=== PATIENT | female | born 1940 | race Caucasian/White ===

== ENCOUNTER → 2017-02-18 | Outpatient (CLI) | payer MEDICARE ==
--- NOTE | 2017-02-18 14:29 | REPMRS ---
Patient History The patient states she had a clinical breast exam in Patient is postmenopausal and has history of endometrial cancer at age 63. No known family history of cancer. Took unspecified hormones for 5 years. Digital Woman Screen Mammo: February 18, 2017 - Exam #: [id number] Bilateral CC and MLO view(s) were taken. Technologist: Katey Nieto, Technologist Prior study comparison: August 26, 2015, digital woman screen mammo performed at [facility]. March 01, 2014, bilateral bilat screen digital mammo, performed at [facility] ([facility]). FINDINGS: There are scattered fibroglandular densities. There has been no change in the appearance of the mammogram from the prior studies. There is a mild amount of residual fibroglandular tissue which is fairly symmetric. There is no interval development of dominant mass, architectural distortion, or clustered microcalcification suggestive of malignancy. ASSESSMENT: BI-RADS/ACR category 1 mammogram. Negative. Recommendation Routine screening mammogram in 1 year (for women over age 40). This mammogram was interpreted with the aid of an FDA-approved computer-aided dectection system. Electronically Signed By: Ochoa Teixeira MD 02/18/17 [id number]
--- NOTE | 2017-02-22 11:40 | DEXA ---
AP SPINE L1 - L4 1.181 -0.1 2.0 LT FEMUR TOTAL 0.806 -1.6 0.4 RT FEMUR TOTAL 0.751 -2.6 0.0 TOTAL BODY TOTAL OTHER DUAL FEMUR FRAX* ASSESSMENT Risk factors: History of adult fracture. 10 year probability of fracture Major osteoporotic fracture 25 % Hip fracture 8.2 % COMMENTS: Normal bone densitometry of the spine. There is low bone density of the left hip. 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 The decreased density of the spine does represent a significant change. The decreased density of the left hip does not represent a significant change. The decreased density of the right hip does not represent a significant change. The density of the spine has increased 8.1% since the initial exam on 03/2000. The spine density has decreased 2.7% since the most recent exam on 02/2014. The density of the left hip has decreased 6.6% since the initial exam on 03/2000. The density of the left hip has decreased 1.0% since the most recent exam on 2013. The density of the right hip has decreased 7.9% since the initial exam on 1999. The density of the right hip has decreased 1.6% since the most recent exam on 2013. FOLLOW-UP: Recommendation for the next bone density exam: 2 years. RUDDY
== END ==
LOC: M WHC 12:29
PROVIDERS: ATTEND Nurse Practitioner Family
DX: M85.851 Other specified disorders of bone density and structure, right thigh (principal); Z12.31 Encounter for screening mammogram for malignant neoplasm of breast; M81.0 Age-related osteoporosis without current pathological fracture; M85.852 Other specified disorders of bone density and structure, left thigh
CPT/HCPCS: 77080; G0202

== ENCOUNTER 2017-08-24 06:27 | Day surgery (SDC) | payer MEDICARE ==
[~2017-08-24] VITALS: Ht 154.9 cm; Wt 53.1 kg
[~2017-08-24 06:27] MED LIST: ALEN70TA39 PO; CALC1TAB56 PO; D400400C PO; MULT1TAB10 PO; OCUVTAB4 PO; SERT25TA PO; TUMERIC PO; TYLE1TAB5 PO
[2017-08-24] MEDS ORDERED: NS 500 ML IV SCH (06:45)
[2017-08-24] MEDS ORDERED: PROPOFOL 200 MG/20 ML VIAL As Ordered ONE ×2 (07:02→07:53)
[2017-08-24] MEDS ORDERED: LIDOCAINE 2% INJ 100 MG/5 ML SDV (FOR ANES.) As Ordered ONE (07:02)
--- NOTE | 2017-08-24 08:06 | ROOR ---
Patient Name: Isabelle Boykin Procedure Date: 08/24/2017 7:36 AM Date of : 1940 Age: 76 Room: [facility] Gender: Female Note Status: Finalized Procedure: Colonoscopy to Rectum + Hot + Cold + Biopsy Polypectomy + Apc. Indications: Therapeutic procedure for known rectal mass Providers: Nghia Garcia MD Referring MD: Josie BELL MD Requesting Provider: Medicines: Monitored Anesthesia Care Complications: No immediate complications. Procedure: Pre-Anesthesia Assessment: - The heart rate, respiratory rate, oxygen saturations, blood pressure, adequacy of pulmonary ventilation, and response to care were monitored throughout the procedure. The Colonoscope was introduced through the anus and advanced to the rectum to examine a mass. This was the intended extent. The colonoscopy was performed without difficulty. The patient tolerated the procedure well. The quality of the bowel preparation was good. Findings: The perianal and digital rectal examinations were normal. A large polyp was found in the rectum. The polyp was sessile. The polyp was removed with a jumbo cold forceps. The polyp was removed with a hot snare. The polyp was removed with a cold snare. Resection and retrieval were complete. Vaporization for destruction of remaining portion of lesion using argon plasma at 2 liters/minute and 30 cross was successful. The exam was otherwise without abnormality. Impression: - One large polyp in the rectum, removed with a hot snare, removed with a cold snare and removed with a jumbo cold forceps. Resected and retrieved. Treated with argon plasma coagulation (APC). - The examination was otherwise normal. Recommendation: - Patient has a contact number available for emergencies. The signs and symptoms of potential delayed complications were discussed with the patient. Return to normal activities tomorrow. Written discharge instructions were provided to the patient. - High fiber diet. - Discharge patient to home. - Continue present medications. - Await pathology results. - Telephone GI clinic for pathology results in 1 week. - Repeat colonoscopy for surveillance based on pathology results. - Return to referring physician. - Check Portal Online for Path Results.([email or web address] - The findings and recommendations were discussed with the patient's family. Nghia Garcia MD Nghia Garcia MD 08/24/2017 8:06:30 AM This report has been signed electronically. Number of Addenda: 0 Note Initiated On: 08/24/2017 7:36 AM Estimated Blood Loss: Estimated blood loss: none.
[2017-08-24 08:25] VITALS: BP 152/73
== END 2017-08-24 08:34 | disposition home or self-care (01) ==
LOC: M OPP 06:27
PROVIDERS: ATTEND Internal Medicine Gastroenterology
DX: Z09 Encounter for follow-up examination after completed treatment for conditions other than malignant neoplasm (principal); D37.4 Neoplasm of uncertain behavior of colon; Z86.010 Personal history of colon polyps; K62.1 Rectal polyp; K62.89 Other specified diseases of anus and rectum; F32.9 Major depressive disorder, single episode, unspecified; Z79.899 Other long term (current) drug therapy

== ENCOUNTER → 2018-02-21 | Outpatient (CLI) | payer MEDICARE | LOC: M WHC 12:42 | DX: Z12.31 Encounter for screening mammogram for malignant neoplasm of breast (principal) | CPT/HCPCS: 77067 ==

== ENCOUNTER 2018-08-16 06:30 | Day surgery (SDC) | payer MEDICARE ==
[2018-08-16] MEDS ORDERED: LIDOCAINE 2% INJ 100 MG/5 ML SDV (FOR ANES.) As Ordered (06:52)
[2018-08-16] MEDS ORDERED: PROPOFOL 200 MG/20 ML VIAL As Ordered (06:52)
[2018-08-16] MEDS: NS 1,000 ML IV (07:00)
== END 2018-08-16 08:32 | disposition home or self-care (01) ==
LOC: M OPP 06:30
DX: Z86.010 Personal history of colon polyps (principal); Z09 Encounter for follow-up examination after completed treatment for conditions other than malignant neoplasm; K62.1 Rectal polyp; I10 Essential (primary) hypertension; Z79.899 Other long term (current) drug therapy; Z90.710 Acquired absence of both cervix and uterus
CPT/HCPCS: 45378

== ENCOUNTER → 2019-06-26 | Outpatient (CLI) | payer MEDICARE ==
[~2019-06-26] MED LIST changes: -ALEN70TA39 PO; +ALEN70TA74 PO; +AMLO2.5T3 PO; -SERT25TA PO; +SERT25TA85 PO
--- NOTE | 2019-06-26 14:11 | REPMRS ---
Patient History The patient states she had a clinical breast exam in 02/2019. Patient is postmenopausal, has history of basal and squmaous cell skin cancer at age 78, and has history of endometrial cancer at age 63. No known family history of cancer. Took unspecified hormones for 5 years. 3D TOMOSYNTHESIS WAS PERFORMED. The [facility] lifetime risk for breast cancer is 2.4%. Digital Woman Screen Mammo: June 26, 2019 - Exam #: [id number] Bilateral CC and MLO view(s) were taken. Technologist: Carla Bryant, Technologist Prior study comparison: February 21, 2018, digital woman screen mammo performed at [facility]. February 18, 2017, digital woman screen mammo performed at [facility]. FINDINGS: There are scattered fibroglandular densities. There has been no change in the appearance of the mammogram from the prior studies. There is a mild amount of residual fibroglandular tissue which is fairly symmetric. There is no interval development of dominant mass, architectural distortion, or clustered microcalcification suggestive of malignancy. Assessment: BI-RADS/ACR category 1 mammogram. Negative Mammogram. Recommendation Routine screening mammogram in 1 year (for women over age 40). This mammogram was interpreted with the aid of an FDA-approved computer-aided dectection system. Electronically Signed By: Ochoa Teixeira MD 06/26/19 [id number]
--- NOTE | 2019-06-28 15:40 | DEXA ---
AP SPINE L1 - L4 1.199 0.0 1.8 LT FEMUR TOTAL 0.801 -1.6 0.2 LT NECK 0.751 -2.1 0.0 RT FEMUR TOTAL 0.749 -2.1 -0.2 RT NECK 0.727 -2.2 -0.2 TOTAL BODY TOTAL OTHER COMMENTS: Normal bone densitometry of the spine. There is low bone density of the hips. The increased density of the spine does not represent a significant change. The decreased density of the left hip does not represent a significant change. The decreased density of the right hip does not represent significant change. The density of the spine has increased 9.7% since the initial exam on 03/31/2000. The spine density has increased 1.5% since the most recent exam on 02/18/2017. The density of the left hip has decreased 7.2% since the initial exam on 03/31/2000. The density of the left hip has decreased 0.6% since the most recent exam on 02/18/2017. The density of the right hip has decreased 8.1% since the initial exam on 03/31/2000. The density of the right hip has decreased 0.3% since the most recent exam on 02/18/2017. FOLLOW-UP: Recommendation for the next bone density exam: 2 years. RUDDY
== END ==
LOC: M WHC 12:28
PROVIDERS: ATTEND Internal Medicine
DX: Z12.31 Encounter for screening mammogram for malignant neoplasm of breast (principal); M81.0 Age-related osteoporosis without current pathological fracture

== ENCOUNTER → 2020-07-09 | Outpatient (CLI) | payer MEDICARE ==
--- NOTE | 2020-07-09 13:49 | REPMRS ---
Patient History The patient states she had a clinical breast exam in 02/2020. Patient is postmenopausal, has history of skin cancer at age 78, and has history of endometrial cancer at age 63. No known family history of cancer. Took unspecified hormones for 5 years. 3D TOMOSYNTHESIS WAS PERFORMED. [facility]%. VOLPARA DENSITY B. Digital Woman Screen Mammo: July 09, 2020 - Exam #: [id number] Bilateral CC and MLO view(s) were taken. Technologist: Carla Bryant, Technologist Prior study comparison: June 26, 2019, bilateral digital woman screen mammo performed at [facility]. February 21, 2018, digital woman screen mammo performed at [facility]. FINDINGS: There are scattered fibroglandular densities. There has been no change in the appearance of the mammogram from the prior studies. There is a mild amount of residual fibroglandular tissue which is fairly symmetric. There is no interval development of dominant mass, architectural distortion, or clustered microcalcification suggestive of malignancy. Assessment: BI-RADS/ACR category 1 mammogram. Negative Mammogram. Recommendation Routine screening mammogram in 1 year (for women over age 40). This mammogram was interpreted with the aid of an FDA-approved computer-aided dectection system. Electronically Signed By: Ochoa Teixeira MD 07/09/20 [id number]
== END ==
LOC: M WHC 12:40
PROVIDERS: ATTEND Internal Medicine
DX: Z12.31 Encounter for screening mammogram for malignant neoplasm of breast (principal); Z78.0 Asymptomatic menopausal state; Z85.828 Personal history of other malignant neoplasm of skin; Z85.42 Personal history of malignant neoplasm of other parts of uterus

== ENCOUNTER → 2021-04-01 | Outpatient (REF) | payer MEDICARE ==
[~2021-04-01] MED LIST changes: -ALEN70TA74 PO; +ALEN70TA82 PO
== END ==
LOC: M LAB REF 17:34
PROVIDERS: ATTEND Physician Assistant
DX: D04.62 Carcinoma in situ of skin of left upper limb, including shoulder (principal); D23.71 Other benign neoplasm of skin of right lower limb, including hip
CPT/HCPCS: 11102; 11103; 17000; 17003; 88305; G0463

== ENCOUNTER → 2021-05-08 | Outpatient (REF) | payer MEDICARE | LOC: M LAB REF 18:27 | PROVIDERS: ATTEND Dermatology | DX: L85.9 Epidermal thickening, unspecified (principal); L57.8 Other skin changes due to chronic exposure to nonionizing radiation; L90.5 Scar conditions and fibrosis of skin ==

== ENCOUNTER → 2021-07-31 | Outpatient (CLI) | payer MEDICARE ==
[~2021-07-31] MED LIST changes: +AMLO1TAB24 PO; +SERT25TA21 PO
--- NOTE | 2021-07-31 11:37 | DEXAMM ---
INDICATION: OTH DISORDER BONE DENSITY AND STRUCTURE. COMPARISON: 06/26/2019 as well as other prior exams. TECHNIQUE: Bone density was measured using dual-energy x-ray absorptiometry (DEXA). FINDINGS: AP SPINE L1-L4 BMD 1.207 g/cm2 Young Adult T-Score 0.1 Age Matched Z-Score 1.9. LT FEMUR, TOTAL BMD 0.794 g/cm2 Young Adult T-Score -1.7 Age Matched Z-Score 0.3. LT NECK BMD 0.730 g/cm2 Young Adult T-Score -2.2 Age Matched Z-Score -0.1. RT FEMUR, TOTAL BMD 0.758 g/cm2 Young Adult T-Score -2.0 Age Matched Z-Score 0.0. RT NECK BMD 0.690 g/cm2 Young Adult T-Score -2.5 Age Matched Z-Score -0.4. IMPRESSION: There is normal bone density of the spine. There is low bone density of the left hip. There is low bone density of the right hip. The density of the spine has increased 10.4% since the initial exam on 03/31/2000. The density of the spine increased 0.7% since most recent exam on 06/26/2019. The density of the left hip has decreased 8.0% since initial exam on 03/31/2000. The density of the left hip has decreased 0.9% since most recent exam on 06/26/2019. The density of the right hip has decreased 7.0% since the initial exam on 03/31/2000. The density of the right hip has increased 1.2% since the most recent exam on 06/26/2019. FOLLOW-UP: Recommendation for the next bone density exam: 2 years. <Electronically signed by Ochoa Teixeira > 07/31/21 [id number]
== END ==
LOC: M WHC 09:45
PROVIDERS: ATTEND Internal Medicine
DX: M85.89 Other specified disorders of bone density and structure, multiple sites (principal)

== ENCOUNTER → 2021-07-31 | Outpatient (CLI) | payer MEDICARE | LOC: M LABSMTC 09:21 | PROVIDERS: ATTEND Anesthesiology | DX: Z01.812 Encounter for preprocedural laboratory examination (principal); Z20.822 Contact with and (suspected) exposure to COVID-19 ==

== ENCOUNTER 2021-08-05 06:43 | Day surgery (SDC) | payer MEDICARE ==
[~2021-08-05] VITALS: Ht 157.5 cm; Wt 55.3 kg
[~2021-08-05 06:43] MED LIST changes: +NS 1,000 ML IV ONE
--- OUTSIDE RECORDS SUMMARY | 2021-08-05 06:48 | CCD | Continuity of Care Document ---
Author Author Isabelle Kunz Organization Unknown Address [address] [facility] [address] [place] [address] Phone [phone] Care Team Providers Care Biomechanical Engineer Name Role Phone Josie Staton MD AUTM [phone] Willa Fung AUTM [phone] Nghia Garcia MD AUTM [phone] Problems Active Problems Provider Date Allergic rhinitis Josie Staton M.D. Onset: 5 Gastroesophageal reflux disease Josie Staton M.D. Onse t: 07/02/2015 Elevated blood-pressure reading without diagnosis of h ypertension Josie Staton M.D. Onset: 07/02/2015 Social History Type Date Description Comments Sex Unknown ETOH Use Drinks 6 Alcoholic Beverages Per Week 02/19/14 ETOH Use Drinks 2 Alcoholic Beverages Per Day 03/01/19 Tobacco Use Start: Unknown End: Unknown Patient is a former smoker [employer] IN [employer] DID NOT INHALE Allergies and adverse reactions Active Allergies Criticality Reaction | Severity Comments Date Sulfa Unable to assess criticality Childhood 02/19/2014 Inactive Allergies NKDA Unable to assess criticality 02/20/2009 Medications Active Medications SIG Qnty Indications Ordering Provide r Date Melatonin 5mg Capsules 1 every night at bedtime as needed 30caps Josie Staton M.D. 2020 Lorazepam 0.5mg Tablets 1/2- 1 po qhs prn 20tabs Josie Staton M.D. 07/29/2020 Amlodipine Besylate 5mg Tablets take one tablet by mouth at bedtime 90tabs Tyra Hubbard. D. 03/28/2018 Tylenol PM Extra Strength 500-25mg Tablets 1-2 by mouth every night at bedtime as needed Josie Staton M.D. 09/15/2017 Calcium 600+D [id number] Table ts 1-2 a day po Josie Staton M.D. 02/26/20 15 Preservision Areds Tablets 1 qd po Josie Staton M.D. 02/25/2015 Sertraline HCL 25mg Tablets take 1-2 tablets by mouth every day 90tabs Krystal Hubbard 02/25/2015 Nettipot prn Josie Staton M.D. 0 02/14/2012 MV-One Capsules qd Josie Staton M.D. 02/10/2011 Medications Administered in Office Medication SIG Qnty Indications Ordering Provider Date Covid-19 vaccine, Unspecified Inj ection Unknown 12/26/2020 Covid-19 vaccine, Unspecified Inj ection Unknown 12/05/2020 Administration Of Flu Vaccine Inj wilfred Staton M.D. 07/29/20 20 Administration Of Flu Vaccine Inj tannaion Josie Staton M.D. 08/07/20 19 Administration Of Flu Vaccine Inj wilfred Staton M.D. 08/02/20 17 Administration Of Flu Vaccine Inj wilfred Staton M.D. 07/23/20 16 Administration Of Flu Vaccine Inj wilfred Staton M.D. 07/16/20 09 Immunizations CPT Code Status Date Vaccine Lot # [id number] Given 07/23/2021 Influenza Vaccin e Quadrivalent Preser/Antibiotic Free Im Use [id number] Given 07/29/2020 Influenza Vaccin e Quadrivalent Preser/Antibiotic Free Im Use [id number] 42639 Given 08/07/2019 Influenza Vaccin e Quadrivalent Preser/Antibiotic Free Im Use [id number] 44705 Given 06/11/2019 Shingrix Zoster Vaccine (HZV), Recombinant, Subunit, Adjuvanted 34697 Given 02/06/2019 Shingrix U-Flu Given 07/28/2018 Influenza,Unspecified 00530 Given 08/02/2017 Influenza Vaccin e Quadrivalent Preser/Antibiotic Free Im Use 38282 Given 03/22/2017 Adacel- Tetanus Diphtheria P ertussis [id number] Given 07/23/2016 Fluvirin Virus Vaccine 19313 01 28725 Given 07/16/2009 Influenza Virus Vaccine 22522 Given 09/14/2007 Pneumovax 23 54652 Given 03/27/2007 Tetanus/Diptheria(Td)Toxoids Preservative Free Vital Signs Date Vital Result Comment 03/05/2021 8:54am BP Systolic 140 mmHg BP Diastolic 70 mmHg Heart Rate 65 /min Height 60 inches 5'0" Weight 123.25 lb BMI (Body Mass Index) 24.1 kg/m2 07/29/2020 1:59pm BP Systolic 142 mmHg BP Diastolic 80 mmHg BP Systolic Recheck 118 mmHg BP Diastolic Recheck 70 mmHg Heart Rate 84 /min Height 60 inches 5'0" Weight 122.00 lb O2 % BldC Oximetry 97 % BMI (Body Mass Index) 23.8 kg/m2 Results Test Acquired Date Facility Test Result H/L Range Note Complete Blood Count 03/05/2021 [facility] Check Scaler: [place] [address] [phone] WBC 6.1 x10*3/UL 4.1 - 10.9 RBC 5.15 x10*6/UL 4.20 - 6.30 Hemoglobin 13.5 g/dL 12.0 - 18.0 Hematocrit 39.7 % 37.0 - 51.0 MCV 77.0 fL Low 80.0 - 97.0 MCH 26.1 pg 26.0 - 32.0 MCHC 33.9 g/dL 31.0 - 38.0 RDW 13.4 % 11.6 - 13.7 PLT 269 x10*3/UL 140 - 440 MPV 7.5 FL Low 7.8 - 11.0 Lymph % 22.3 % 10.0 - 58.5 Mid % 6.7 % 1.7 - 9.3 Neut % 71.0 % 37.0 - 92.0 Lymph # 1.3 x10*3/UL 0.6 - 4.1 Mid # 0.5 x10*3/UL 0.1 - 0.6 Neut # 4.3 x10*3/UL 2.0 - 7.8 Comprehensive Chem Profile 03/05/2021 [facility], Check Scaler: Dr Jose Angel [place] [address] [phone] Glucose 91 mg/dL 74 - 99 1 BUN 12 mg/dL 7 - 18 Creatinine 0.6 mg/dL 0.6 - 1.3 Sodium 136 mEq/L 136 - 145 Potassium 4.0 mEq/L 3.5 - 5.1 Chloride 98 mEq/L 98 - 107 Carbon Dioxide 29 mEq/L 21 - 32 Calcium 9.1 mg/dL 8.5 - 10.1 Alk. Phosphatase 62 mg/dL 46 - 116 Total Bilirubin 0.7 mg/dL 0.2 - 1.0 Ast (Sgot) 23 U/L 15 - 37 Alt (SGPT) 30 U/L 12 - 78 Albumin 4.4 g/dL 3.4 - 5.0 Total Protein 6.9 g/dL 6.4 - 8.2 A/G Ratio 1.76 CALC 1.00 - 1.90 GFR >= 60 mL/min >60 GFR >= 60 mL/min >60 2 Lipid Profile 03/05/2021 [facility] , Check Scaler: Dr Jose Angel [place] [address] [phone] Cholesterol 229 mg/dL High 131 - 200 Triglycerides 103 mg/dL 30 - 150 HDL Cholesterol 91 mg/dL High 35 - 60 LDL (Calculated) 117 CALC 50 - 159 Laboratory test finding 03/05/2021 [facility] Check Scaler: Dr Jose Angel [place] [address] [phone] Thyroid Stimulating Hormone 1.85 uIU/mL 0.3 6 - 3.74 Ua Dipstick Only 03/05/2021 [facility] , Check Scaler: Dr Jose Angel [place] [address] [phone] Urine Color YELLOW Yellow Urine Appearance SL. HAZY Abnormal Clear Urine PH 8.0 units 5.0 - 9.0 Urine Specific [place] 1.010 1.005 - 1.030 Urine Leukocytes NEGATIVE Negative Urine Blood NEGATIVE Negative Urine Protein NEGATIVE Negative -Trace Urine Glucose NEGATIVE mg/dL Negative Urine Nitrite NEGATIVE Negative Urine Ketone NEGATIVE mg/dL Negative Urine Bilirubin NEGATIVE Negative Urine Urobilinogen 0.2 mg/dL 0.2 - 1.0 1 100-125 mg/dL PRE-DIABET ES/FASTING >126 mg/dL DIABETES/FASTING 2 CHRONIC KIDNEY DISEASE STAGI NG PER NKF STAGE I & II GFR >= 60 NORMAL TO MILDLY DECREASED STAGE III GFR 30-59 MODERATELY DECREASED STAGE IV GFR 15-29 SEVERELY DECREASED STAGE V GFR <15 VERY LITTLE GFR LEFT ESRD GFR <15 ON BRIM AND CROWN PRESSER Procedures Date Code Description Status 03/05/2021 90963 EKG/Interpretation & Report Comp leted 03/05/2021 93515 Est Prevent Med (65Yrs&Ovr) Comp leted 07/09/2020 [id number] Mammogram Completed 06/26/2019 [id number] Mammogram Completed 06/26/2019 [id number] Bone Mineral Density Test [facility] 08/16/2018 [id number] Colonoscopy Completed 02/21/2018 [id number] Mammogram Completed 08/24/2017 [id number] Colonoscopy Completed 02/18/2017 [id number] Bone Mineral Density Test [facility] 02/18/2017 [id number] Mammogram Completed 08/18/2016 [id number] Colonoscopy Completed 03/19/2015 [id number] Mammogram Completed 03/01/2014 [id number] Mammogram Completed 03/01/2014 [id number] Bone Mineral Density Test [facility] 02/26/2013 [id number] Mammogram Completed 02/22/2012 [id number] Mammogram Completed 02/22/2012 [id number] Bone Mineral Density Test [facility] 08/11/2011 [id number] Colonoscopy Completed 08/28/2010 [id number] Colonoscopy Completed 09/29/2009 [id number] Mammogram Completed 04/22/2009 [id number] Bone Mineral Density Test [facility] Medical Devices Description No Information Available Encounters Type Date Location Provider Dx Diagnosis Office Visit 03/05/2021 9[facility]a [facility] Z00.00 Encntr for general adult med ical exam w/o abnormal findings J30.9 Allergic rhinitis, unspecifi ed M15.9 Polyosteoarthritis, unspecif ied M81.0 Age-related osteoporosis w/o current pathological fracture F41.9 Anxiety disorder, unspecifie d K21.9 Gastro-esophageal reflux dis ease without esophagitis E78.5 Hyperlipidemia, unspecified Z86.010 Personal history of colonic polyps Z13.89 Encounter for screening for other disorder I10 Essential (primary) hyperten roxann Assessments Date Code Description Provider 03/05/2021 Z00.00 Encounter for genera l adult medical examination without abnormal findings Josie Staton M.D. 03/05/2021 J30.9 Allergic rhinitis, unspecified J liam Staton M.D. 03/05/2021 M15.9 Polyosteoarthritis, unspecified Josie Staton M.D. 03/05/2021 M81.0 Age-related osteoporosis without current pathological fractu Josie Staton M.D. 03/05/2021 F41.9 Anxiety disorder, unspecified Pippa Staton M.D. 03/05/2021 K21.9 Gastro-esophageal reflux disease without esophagitis Josie Staton M.D. 03/05/2021 E78.5 Hyperlipidemia, unspecified Sandy Staton M.D. 03/05/2021 Z86.010 Personal history of colonic poly ps Josie Staton M.D. 03/05/2021 Z13.89 Encounter for screening for othe r disorder Josie Staton M.D. 03/05/2021 I10 Essential (primary) hypertension Josie Staton M.D. Plan of Treatment Future Appointment(s):* 08/17/2021 9:30 am - Josie Staton M.D. at [facility] 03/05/2021 - Josie Staton M.D.* Z00.00 Encounter for general adult medical examination without abnormal findings * J30.9 Allergic rhinitis, unspecified * M15.9 Polyosteoarthritis, unspecified * M81.0 Age-related osteoporosis without current pathological fractu * F41.9 Anxiety disorder, unspecified * K21.9 Gastro-esophageal reflux disease without esophagitis * E78.5 Hyperlipidemia, unspecified * Z86.010 Personal history of colonic polyps * Z13.89 Encounter for screening for other disorder * I10 Essential (primary) hypertension * All * New Medication:* Melatonin 5 mg - 1 every night at bedtime as needed * Comments:* 8. Cough. Chronic, stable. Evangeline to be related to allergies9. Skin cancer. Follows regularly with [id number] Health Maintenance. Patient's Medicare Wellness paperwork is reviewed. She is not smoking, check list is reviewed without issues. Passed her Cognitive screen as well as CAGE, PHQ9, [facility] is reviewed. She is due for bone density and order will be given. She would like to hold off on further mammograms. Pap smears are not indicated. Vaccines are up to date. Diet, exercise discussed. Functional Status Description No Information Available Mental Status Description No Information Available Referrals Description No Information Available
--- OUTSIDE RECORDS SUMMARY | 2021-08-05 06:48 | CCD ---
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 tive confirmed 064848260 Problem Postmenopausal status (age-related) (natural) V49.81 Active confirmed [id number] Problem Vaginal Pap smear following hysterectomy for malignancy V6 7.01 Active confirmed Problem Osteoporosis screening V82.81 Active confirmed 944970245 ALLERGIES No Known Allergies ENCOUNTERS from 1940 to 2021-05-18 Encounter Location Date Provider Diagnosis [facility] D[facility] [address] [facility] [phone] [place] [address] May, Jorge Ro Encounter for removal of sut ures Z48.02 IMMUNIZATIONS No Information SOCIAL HISTORY Sex Assigned At : Social History Observation Description Sex Assigned At Unknown REASON FOR REFERRAL No Information VITAL SIGNS No information MEDICATIONS Medication SIG (Take, Route, Frequency, Duration) Notes Start Da te End Date Status Calcium 600 MG 1 tablet with meals p.o. once a day for 30 day(s) Active Vitamin B 12 500 MCG 1 tablet Orally Once a day for 30 day(s) Active Aleve 220 MG 1 capsule with food or milk as needed Orally every 12 hr s Active Sleep Aid 25 MG 1 tablet at bedtime as needed Orally Once a day for 30 day(s) Active amLODIPine Besylate 5 MG 1 tablet Orally Once a day for 30 day(s) Active Cephalexin 500 MG 1 capsule Orally every 12 hrs for 10 day(s) Apr, Active Trace Min [id number] otc 1 tab(s) p.o. once a day Not-Taking Magnesium 500 mg 1 tablet with a meal p.o. Once a day for 30 day(s) Active Turmeric 500 mg 1 cap(s) Orally once a day Not-Taking Multivitamins 1 cap(s) Orally once a day Active Vitamin D 400 UNIT 1 capsule p.o. Once a day for 30 day(s) Active Sertraline HCl 25 MG 1 tablet Orally Once a day for 30 day(s) Active PreserVision AREDS 1 tab(s) Orally once a day Active Tylenol 325 MG 1 tablet as needed Orally every 4 hrs Active PROCEDURES from 1941 to 2021-05-18 Procedure Date Ordered Result Body Site Suture Removal 2021-05-18 N/A RESULTS No Results REASON FOR VISIT S/R [facility] MEDICAL (GENERAL) HISTORY Type Description Date Medical History endometrial cancer Medical History osteopenia, last bone density done 03/01 t score -1.9 Surgical History hysterectomy due to endometrial cancer 2 004 Surgical History colonoscopy 2010 Surgical History colonoscopy polyps removed 2009 Hospitalization History No Hospitalization history informati on Goals Section No Information Health Concerns No Information MEDICAL EQUIPMENT No Information MENTAL STATUS No Information FUNCTIONAL STATUS No Information ASSESSMENTS Encounter Date Diagnosis Assessment Notes Treatment Notes Treatm ent Clinical Notes May, Encounter for removal of sutures (ICD-10 - Z48.0 2) Well healed incision without evidence of infection to include erythema, purulent discharge or tenderness to palpation around site of healing. Patient currently without any specific complaints. After inspection, sutures were removed by non- physician office personnel. Non-physician office personnel reported that the removal went well and the patient left in stable condition. The patient was instructed to return to clinic anytime between 0700 and 1600 Tuesday-Tuesday for any issues relating to the site. If the dermatology clinic is not open, the patient was instructed to report to an emergency department. PLAN OF TREATMENT Medication Medication Name Sig Start Date Stop Date Cephalexin 500 MG 1 capsule Orally every 12 hrs for 10 day(s) Apr, Treatment Notes Assessment Notes Clinical Notes Encounter for removal of sutures Well healed incision without evidence of infection to include erythema, purulent discharge or tenderness to palpation around site of healing. Patient currently without any specific complaints. After inspection, sutures were removed by non-physician office personnel. Non- physician office personnel reported that the removal went well and the patient left in stable condition. The patient was instructed to return to clinic anytime between 0700 and 1600 Tuesday-Tuesday for any issues relating to the site. If the dermatology clinic is not open, the patient was instructed to report to an emergency department. Next Appt Details Provider Name:Laura Koby Woodward, 2022-04-05 01:00:00 PM, [address] [place] [address], [place], [place], Formerly named [facility], Insurance Providers Payer Name Payer Address Payer Phone Insured Name Patient Relati onship to Insured Coverage Start Date Coverage End Date MEDICARE BLUE PPO [phone] [address] [place] self
--- OUTSIDE RECORDS SUMMARY | 2021-08-05 06:48 | CCD ---
Author Author [facility] Organization [facility] Address Unknown Phone Unavailable Care Team Providers Care Time Study Technologist Name Role Phone Daisy Garcia MD Unavailable Unavailable Daisy Garcia MD Unavailable Unavailable Daisy Garcia MD Unavailable Unavailable Daisy Garcia MD Unavailable Unavailable Daisy Garcia MD Unavailable Unavailable Daisy Garcia MD Unavailable Unavailable Daisy Garcia MD Unavailable Unavailable Daisy Garcia MD Unavailable Unavailable Daisy Garcia MD Unavailable Unavailable Daisy Garcia MD Unavailable Unavailable Daisy Garcia MD Unavailable Unavailable Daisy Garcia MD Unavailable Unavailable Daisy Garcia MD Unavailable Unavailable Daisy Garcia MD Unavailable Unavailable Daisy Garcia MD Unavailable Unavailable Daisy Garcia MD Unavailable Unavailable Daisy Garcia MD Unavailable Unavailable Daisy Garcia MD Unavailable Unavailable Daisy Garcia MD Unavailable Unavailable Daisy Garcia MD Unavailable Unavailable Daisy Garcia MD Unavailable Unavailable Daisy Garcia MD Unavailable Unavailable Daisy Garcia MD Unavailable Unavailable Daisy Garcia MD Unavailable Unavailable Daisy Garcia MD Unavailable Unavailable Daisy Garcia MD Unavailable Unavailable Daisy Garcia MD Unavailable Unavailable Daisy Garcia MD Unavailable Unavailable Daisy Garcia MD Unavailable Unavailable Daisy Garcia MD Unavailable Unavailable Daisy Garcia MD Unavailable Unavailable Daisy Garcia MD Unavailable Unavailable Daisy Garcia MD Unavailable Unavailable Daisy Garcia MD Unavailable Unavailable Daisy Garcia MD Unavailable Unavailable Daisy Garcia MD Unavailable Unavailable Daisy Garcia MD Unavailable Unavailable Daisy Garcia MD Unavailable Unavailable Daisy Garcia MD Unavailable Unavailable Daisy Garcia MD Unavailable Unavailable Daisy Garcia MD Unavailable Unavailable Daisy Garcia MD Unavailable Unavailable Daisy Garcia MD Unavailable Unavailable Daisy Garcia MD Unavailable Unavailable Daisy Garcia MD Unavailable Unavailable Daisy Garcia MD Unavailable Unavailable Daisy Garcia MD Unavailable Unavailable Daisy Garcia MD Unavailable Unavailable Daisy Garcia MD Unavailable Unavailable Daisy Garcia MD Unavailable Unavailable Tyra Staton MD Unavailable Unavailable Tyra Staton MD Unavailable Unavailable Tyra Staton MD Unavailable Unavailable Tyra Staton MD Unavailable Unavailable Tyra Staton MD Unavailable Unavailable Tyra Staton MD Unavailable Unavailable Tyra Staton MD Unavailable Unavailable Tyra Staton MD Unavailable Unavailable Tyra Staton MD Unavailable Unavailable Tyra Staton MD Unavailable Unavailable Tyra Staton MD Unavailable Unavailable Tyra Staton MD Unavailable Unavailable Tyra Staton MD Unavailable Unavailable Tyra Staton MD Unavailable Unavailable Tyra Staton MD Unavailable Unavailable Tyra Staton MD Unavailable Unavailable Tyra Staton MD Unavailable Unavailable Tyra Staton MD Unavailable Unavailable Tyra Staton MD Unavailable Unavailable Tyra Staton MD Unavailable Unavailable Tyra Staton MD Unavailable Unavailable Tyra Staton MD Unavailable Unavailable Tyra Staton MD Unavailable Unavailable Tyra Staton MD Unavailable Unavailable Tyra Staton MD Unavailable Unavailable Tyra Staton MD Unavailable Unavailable Tyra Staton MD Unavailable Unavailable Tyra Staton MD Unavailable Unavailable Tyra Staton MD Unavailable Unavailable Tyra Staton MD Unavailable Unavailable Tyra Staton MD Unavailable Unavailable Tyra Staton MD Unavailable Unavailable Tyra Staton MD Unavailable Unavailable Tyra Staton MD Unavailable Unavailable BrionnaTyra hunter MD Unavailable Unavailable BrionnaTyra hunter MD Unavailable Unavailable BrionnaTyra hunter MD Unavailable Unavailable BrionnaTyra MD Unavailable Unavailable BrionnaTyra MD Unavailable Unavailable BrionnaTyra MD Unavailable Unavailable BrionnaTyra MD Unavailable Unavailable Tyra Staton MD Unavailable Unavailable BrionnaTyra hunter MD Unavailable Unavailable Tyra Staton MD Unavailable Unavailable BrionnaTyra MD Unavailable Unavailable BrionnaTyra patnio MD Unavailable Unavailable BrionnaTyra MD Unavailable Unavailable Tyra Staton MD Unavailable Unavailable BrionnaTyra MD Unavailable Unavailable BrionnaTyra patino MD Unavailable Unavailable BrionnaTyra MD Unavailable Unavailable Tyra Staton MD Unavailable Unavailable BrionnaTyra hunter MD Unavailable Unavailable Tyra Staton MD Unavailable Unavailable Tyra Staton MD Unavailable Unavailable Tyra Staton MD Unavailable Unavailable Tyra Staton MD Unavailable Unavailable Tyra Staton MD Unavailable Unavailable Tyra Staton MD Unavailable Unavailable Tyra Staton MD Unavailable Unavailable Tyra Staton MD Unavailable Unavailable Tyra Staton MD Unavailable Unavailable Tyra Staton MD Unavailable Unavailable Tyra Staton MD Unavailable Unavailable Tyra Staton MD Unavailable Unavailable Tyra Staton MD Unavailable Unavailable Tyra Staton MD Unavailable Unavailable Tyra Staton MD Unavailable Unavailable Tyra Staton MD Unavailable Unavailable Tyra Staton MD Unavailable Unavailable Tyra Staton MD Unavailable Unavailable Tyra Staton MD Unavailable Unavailable Tyra Staton MD Unavailable Unavailable Tyra Staton MD Unavailable Unavailable Tyra Staton MD Unavailable Unavailable Tyra Staton MD Unavailable Unavailable Tyra Staton MD Unavailable Unavailable Tyra Staton MD Unavailable Unavailable Tyra Staton MD Unavailable Unavailable Tyra Staton MD Unavailable Unavailable Tyra Staton MD Unavailable Unavailable Tyra Staton MD Unavailable Unavailable Tyra Staton MD Unavailable Unavailable Tyra Staton MD Unavailable Unavailable Re-disclosure Warning The records that you are about to access may contain information from federally-assisted alcohol or drug abuse programs. If such information is present, then the following federally mandated warning applies: This information has been disclosed to you from records protected by federal confidentiality rules (42 CFR part 2). The federal rules prohibit you from making any further disclosure of this information unless further disclosure is expressly permitted by the written consent of the person to whom it pertains or as otherwise permitted by 42 CFR part 2. A general authorization for the release of medical or other information is NOT sufficient for this purpose. The Federal rules restrict any use of the information to criminally investigate or prosecute any alcohol or drug abuse patient.The records that you are about to access may contain highly sensitive health information, the redisclosure of which is protected by Article 27-F of the [facility] Public Health law. If you continue you may have access to information: Regarding HIV / AIDS; Provided by facilities licensed or operated by the [facility] Office of Mental Health; or Provided by the [facility] Office for People With Developmental Disabilities. If such information is present, then the following [facility] mandated warning applies: This information has been disclosed to you from confidential records which are protected by state law. State law prohibits you from making any further disclosure of this information without the specific written consent of the person to whom it pertains, or as otherwise permitted by law. Any unauthorized further disclosure in violation of state law may result in a fine or long-term sentence or both. A general authorization for the release of medical or other information is NOT sufficient authorization for further disc losure. Family History Family Member Name Family Member Gender Family Member Status Date o f Status Description Data Source(s) Unknown Unknown Problem MEDENT ([facility]) Unknown Male Problem MEDENT ([facility]) Unknown Male Problem MEDENT ([facility]) Encounters Encounter Providers Location Date Indications Data Source(s ) [place] [address] [facility] [address] 05/18/2021 12:00:00 AM EDT eCW1 ([facility]) Outpatient [address] [facility] [address] 05/08/2021 12:00:00 AM EDT eCW1 ([facility]) Outpatient Attender: Nghia Garcia MD Main Office 04/21/2021 10:45:00 AM EDT MEDENT ([facility]) Outpatient Attender: Josie Tompkins 09:30:00 AM EDT MEDENT ([facility] ) Outpatient Attender: Josie Tompkins 02:00:00 PM EDT MEDENT ([facility] ) Immunizations Vaccine Date Status Description Data Source(s) Influenza, injectable, MDCK, preservative free, mike valent 07/23/2021 10:09:00 AM EDT completed [facility]) Influenza, injectable, MDCK, preservative free, mike valent 07/29/2020 02:04:00 PM EDT completed [facility]) Medications Medication Brand Name Start Date Product Form Dose Route Admi nistrative Instructions Pharmacy Instructions Status Indications Reaction Description Data Source(s) Administration Of Flu Vaccine 07/23/2021 12:00:00 AM EDT completed [facility]) Medication administered onsite 5 mg 06/24/2021 12:00:00 AM EDT tablet 90 TAKE ONE TABLET BY MOUTH AT BEDTIME TAKE ONE TABLET BY MOUTH AT BEDTIME SOLD: 06/29/2021 [facility] 25 mg 06/23/2021 12:00:00 AM EDT tablet 90 TAKE ONE TO TWO TABLETS BY MOUTH DAILY TAKE ONE TO TWO TABLETS BY MOUTH DAILY SOLD: 06/29/2021 [facility] Cephalexin 500 MG Oral Capsule CEPHALEXIN 05/08/2021 12:00:00 AM EDT capsule 20 TAKE ONE CAPSULE BY MOUTH EVERY 12 HOURS FOR 10 DAYS T NICK ONE CAPSULE BY MOUTH EVERY 12 HOURS FOR 10 DAYS SOLD: 05/18/2021 [facility] Cephalexin 500 MG Oral Capsule Cephalexin 500 MG 05/08/2021 12:00:0 0 AM EDT 1.0 {capsule} active Cephalexin 500 MG eCW1 ([facility]) Cephalexin 500 MG Oral Capsule Cephalexin 500 MG 05/08/2021 12:00:0 0 AM EDT 1.0 {capsule} active Cephalexin 500 MG eCW1 ([facility]) Sutab Sutab 04/21/2021 12:00:00 AM EDT active MEDENT ([facility]) 1.479-0.188- 0.225 gram 04/21/2021 12:00:00 AM EDT tablet 24 TAKE DIRECTED TAKE DIRECTED SOLD: 05/18/2021 [facility] Melatonin 5 MG Oral Capsule Melatonin 03/05/2021 12:00:00 AM EDT active MEDENT ([facility]) Covid-19 vaccine, Unspecified 12/26/2020 12:00:00 AM EST completed [facility]) Medication administered onsite Covid-19 vaccine, Unspecified 12/05/2020 12:00:00 AM EST completed [facility]) Medication administered onsite 5 mg 07/30/2020 12:00:00 AM EDT tablet 90 TAKE ONE TABLET BY MOUTH AT BEDTIME TAKE ONE TABLET BY MOUTH AT BEDTIME SOLD: 04/20/2021 [facility] 5 mg 07/30/2020 12:00:00 AM EDT tablet 90 TAKE ONE TABLET BY MOUTH AT BEDTIME TAKE ONE TABLET BY MOUTH AT BEDTIME SOLD: 08/06/2020 [facility] 5 mg 07/30/2020 12:00:00 AM EDT tablet 90 TAKE ONE TABLET BY MOUTH AT BEDTIME TAKE ONE TABLET BY MOUTH AT BEDTIME SOLD: 02/07/2021 [facility] 25 mg 07/30/2020 12:00:00 AM EDT tablet 90 TAKE ONE TO TWO TABLETS BY MOUTH EVERY DAY TAKE ONE TO TWO TABLETS BY MOUTH EVERY DAY SOLD: 04/20/2021 [facility] 25 mg 07/30/2020 12:00:00 AM EDT tablet 90 TAKE ONE TO TWO TABLETS BY MOUTH EVERY DAY TAKE ONE TO TWO TABLETS BY MOUTH EVERY DAY SOLD: 11/03/2020 [facility] 25 mg 07/30/2020 12:00:00 AM EDT tablet 90 TAKE ONE TO TWO TABLETS BY MOUTH EVERY DAY TAKE ONE TO TWO TABLETS BY MOUTH EVERY DAY SOLD: 02/07/2021 [facility] 5 mg 07/30/2020 12:00:00 AM EDT tablet 90 TAKE ONE TABLET BY MOUTH AT BEDTIME TAKE ONE TABLET BY MOUTH AT BEDTIME SOLD: 11/03/2020 [facility] 25 mg 07/30/2020 12:00:00 AM EDT tablet 90 TAKE ONE TO TWO TABLETS BY MOUTH EVERY DAY TAKE ONE TO TWO TABLETS BY MOUTH EVERY DAY SOLD: 08/06/2020 [facility] Lorazepam 0.5 MG Oral Tablet Lorazepam 07/29/2020 12:00:00 AM EDT ORAL active MEDENT ([facility]) 0.5 mg 07/29/2020 12:00:00 AM EDT tablet 20 TAKE .5-1 TABLET BY MOUTH AT BEDTIME NEEDED MAX=1TAB/DAY TAKE .5-1 TABLET BY MOUTH AT BEDTIME NEEDED MAX=1TAB/DAY SOLD: 08/06/2020 [facility] Administration Of Flu Vaccine 07/29/2020 12:00:00 AM EDT completed [facility] ([facility]) Medication administered onsite 0.12 % 07/23/2020 12:00:00 AM EDT mouthwash 473 RINSE MOUTH AND SPIT WITH 15ML FOR 30 SECONDS THREE TIMES A DAY AFTER BRUSHING TEETH RINSE MOUTH AND SPIT WITH 15ML FOR 30 SECONDS THREE TIMES A DAY AFTER BRUSHING TEETH SOLD: 07/23/2020 [facility] Insurance Providers Payer name Policy type / Coverage type Policy ID Covered green party ID Covered green party's relationship to simon Policy Simon Plan Information [employer] Trad/MX Medigap Part B [id number] Self [id number] [employer] Trad/[place] Medigap Part B [id number] Self [id number] Medicare Natl Govt Servic Medicare Primary [id number] Self [id number] Medicare Natl Govt Servic Medicare Primary [id number] Self [id number] Medicare Natl Govt Servic Medicare Primary [id number] Self [id number] Medicare Natl Govt Servic Medicare Primary [id number] Self [id number] Medicare Natl Govt Servic Medicare Primary [id number] Self [id number] Medicare Natl Govt Servic Medicare Primary [id number] Self 0 [id number] Medicare Natl Govt Servic Medicare Primary [id number] Self [id number] Medicare Natl Govt Servic Medicare Primary [id number] Self [id number] Medicare Natl Govt Servic Medicare Primary [id number] Self MEDICARE BLUE PPO 306 [id number] SP [id number] MEDICARE BLUE PPO 306 [id number] SP [id number] Medicare Blue Ppo Commercial [id number] Self [id number] Medicare Blue Ppo Commercial [id number] Self [id number] Medicare Blue Ppo Commercial [id number] Self [id number] Medicare Blue Ppo Commercial [id number] Self [id number] MEDICARE BLUE PPO 306 [id number] SP [id number] MEDICARE BLUE PPO 306 [id number] SP [id number] [facility] [id number] S [id number] MEDICARE BLUE PPO 306 VYM SP VYM BS Medicare Ppo Commercial [id number] Self [id number] Medicare Ppo Commercial [id number] Self [employer] BCBS B [id number] S VYM BS Medicare Ppo Commercial [id number] Self [id number] [employer]BS B [id number] S VYM MEDICARE BLUE PPO 306 [id number] SP [id number] MEDICARE BLUE PPO 306 [id number] SP [id number] Problems, Conditions, and Diagnoses Code Display Name Description Problem Type Effective Dates Data Source(s) 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 Pro blem 05/08/2021 12:00:00 AM EDT eC ([facility]) Z12.83 [id number] Screening exam for skin cancer Problem 04/01/2021 12:00:00 AM EDT eC ([facility]) Surgeries/Procedures Procedure Description Date Indications Data Source(s) Suture Removal 05/18/2021 12:00:00 AM EDT eC ([facility]) Med: Derm Lidocaine with Epinephrine Inj ection 1% with 2 ml sodium bicarbonate Intradermally to marked areas 05/08/2021 12:00:00 AM EDT eC ([facility]) OFFICE OUTPATIENT VISIT 15 MINUTES 04/21/2021 12:00:00 AM EDT MEDVITO ([facility]) PERIODIC PREVENTIVE MED EST PATIENT 65YRS&> 03/05/2021 12:00:00 AM EDT CAROL ([facility]) ECG ROUTINE ECG W/LEAST 12 LDS W/I&R 03/05/2021 12:00: 00 AM EDT CAROL ([facility]) Mammogram 07/09/2020 12:00:00 AM EDT Tyra ECKERT ([facility]) Results ID Date Data Source [id number] 03/05/2021 08:12:00 AM EDT CAROL ([facility]) Name Value Range Interpretation Code Description Data Fifi rce(s) Supporting Document(s) Urine Appearance Laboratory test result Abnormal (applies to non-numeric results) [facility] Urine Color Laboratory test result [facility] Urine PH 8.0 units 5.0-9.0 [facility]) Urine Blood Laboratory test result [facility] Specific gravity of Urine 1.010 1.005-1.030 RI DENT [facility] Urine Leukocytes Laboratory test result [facility] Urine Protein Laboratory test result 0-0 MED ENT [facility] Urine Nitrite Laboratory test result [facility] Glucose [Presence] in Urine Laboratory test result [facility] Urine Ketone [facility] Bilirubin.total [Mass/volume] in Serum or Plasma Laboratory test resu lt [facility] Urine Urobilinogen 0.2 mg/dL 0.2-1.0 [facility] ID Date Data Source [id number] 03/05/2021 08:12:00 AM EDT [facility] Name Value Range Interpretation Code Description Data Fifi rce(s) Supporting Document(s) Thyrotropin [Units/volume] in Serum or Plasma by Detec tion limit <= 0.05 mIU/L 1.85 uIU/mL 0.36-3.74 [facility] ID Date Data Source [id number] 03/05/2021 08:12:00 AM EDT [facility] Name Value Range Interpretation Code Description Data Fifi rce(s) Supporting Document(s) Cholesterol [Mass/volume] in Serum or Plasma 229 mg/dL 131-200 [facility] ([facility]) Cholesterol in LDL [Mass/volume] in Serum or Plasma by calcu lation 117 CALC 50-159 [facility] Cholesterol in HDL [Mass/volume] in Serum or Plasma 91 mg/dL 35-60 [facility] ([facility]) Triglyceride [Mass/volume] in Serum or Plasma 103 mg/dL 30-150 [facility] ([facility]) ID Date Data Source [id number] 03/05/2021 08:12:00 AM EDT MEDENT ([facility]) Name Value Range Interpretation Code Description Data Fifi rce(s) Supporting Document(s) Glucose [Mass/volume] in Serum or Plasma 91 mg/dL 74-99 MED[facility] ([facility]) 100-125 mg/dL PRE-DIABETES/FASTING >126 mg/dL DIABETES/FASTING Creatinine 0.6 mg/dL 0.6-1.3 [facility] ([facility]) Sodium [Moles/volume] in Serum or Plasma 136 meq/L 136-145 [facility] ([facility]) Urea nitrogen [Mass/volume] in Serum or Plasma 12 mg/dL 7-18 [facility] ([facility]) Potassium [Moles/volume] in Serum or Plasma 4.0 meq/L 3.5-5.1 [facility] ([facility]) Chloride [Moles/volume] in Serum or Plasma 98 meq/L 98-107 [facility] ([facility]) Carbon dioxide, total [Moles/volume] in Serum or Plasma 29 meq/L 21 -32 [facility] ([facility]) Calcium [Mass/volume] in Serum or Plasma 9.1 mg/dL 8.5-10.1 [facility] ([facility]) Alkaline phosphatase isoenzyme [Units/volume] in Serum or Pl asma 62 mg/dL 46-116 [facility] Total Bilirubin 0.7 mg/dL 0.2-1.0 MEDENT ([facility]) Aspartate aminotransferase [Enzymatic activity/volume] in Serum or Plasma 23 U/L 15-37 MED[facility] ([facility] ) Albumin [Mass/volume] in Serum or Plasma 4.4 g/dL 3.4-5.0 [facility] ([facility]) Alanine aminotransferase [Enzymatic activity/volume] in Seru m or Plasma 30 U/L 12-78 [facility] ([facility]) A/G Ratio 1.76 CALC 1.00-1.90 [facility] ([facility]) Glomerular filtration rate/1.73 sq M pre dicted among non-blacks [Volume Rate/Area] in Serum or Plasma by Creatinine-based formula (MDRD) Laboratory test result MED[facility] ([facility] ) Proteinase 3 Ab [Units/volume] in Serum 6.9 g/dL 6.4-8.2 [facility] ([facility]) Glomerular filtration rate/1.73 sq M pre dicted among blacks [Volume Rate/Area] in Serum or Plasma by Creatinine-based formula (MDRD) Laboratory test result [facility] ([facility]) <content>CHRONIC KIDNEY DISEASE STAGING PER NKF</content>
<content></content>
<content>STAGE I & II GFR >= 60 NORMAL TO MILDLY DECREASED</content>
<content>STAGE III GFR 30-59 MODERATELY DECREASED</content>
<content>STAGE IV GFR 15-29 SEVERELY DECREASED</content>
<content>STAGE V GFR <15 VERY LITTLE GFR LEFT</content>
<content>ESRD GFR <15 ON FAMILY LIVING EDUCATOR</content>
<content></content> ID Date Data Source [id number] 03/05/2021 08:12:00 AM EDT [facility] Name Value Range Interpretation Code Description Data Fifi rce(s) Supporting Document(s) Leukocytes [#/volume] in Blood by Automated count 6.1 x10*3/UL 4.1-10 .9 MED[facility] ([facility]) Hemoglobin [Mass/volume] in Blood 13.5 g/dL 12.0-18.0 [facility] ([facility]) Erythrocytes [#/volume] in Blood by Automated count 5.15 x10*6/UL 4.2 0-6.30 [facility] ([facility]) Hematocrit [Volume Fraction] of Blood by Automated count 39.7 % 3 7.0-51.0 [facility] ([facility]) MCV 77.0 fL 80.0-97.0 [facility]) MCH 26.1 pg 26.0-32.0 [facility]) Platelets [#/volume] in Blood by Automated count 269 x10*3/UL 140-440 [facility] ([facility]) Erythrocyte distribution width [Ratio] by Automated count 13.4 % 11.6-13.7 [facility] ([facility]) MCHC 33.9 g/dL 31.0-38.0 [facility] Lymph % 22.3 % 10.0-58.5 [facility] MPV 7.5 FL 7.8-11.0 [facility] Mid % 6.7 % 1.7-9.3 [facility] Neut % 71.0 % 37.0-92.0 [facility] Lymph # 1.3 x10*3/UL 0.6-4.1 [facility] ([facility]) Mid # 0.5 x10*3/UL 0.1-0.6 [facility] ([facility]) Neut # 4.3 x10*3/UL 2.0-7.8 [facility] ([facility]) Procedure Social History No Information Vital Signs ID Date Data Source UNK Name Value Range Interpretation Code Description Data Source(s) Body weight 125 [lb_av] 125 [lb_av] W1 ([facility]) Body height 60 [in_i] 60 [in_i] eCW1 ([facility]) Body mass index (BMI) [Ratio] 24.41 kg/m2 24.41 kg/m2 eCW1 ([facility]) Systolic blood pressure 138 mm[Hg] 138 mm[Hg] e CW1 ([facility]) Diastolic blood pressure 82 mm[Hg] 82 mm[Hg] eCW1 ([facility]) Body height 61 [in_i] 61 [in_i] MEDENT ([facility] tive [facility]) 5'1" Body weight 122.00 [lb_av] 122.00 [lb_av] MEDEN T ([facility]) Systolic blood pressure 132 mm[Hg] 132 mm[Hg] M EDENT ([facility]) Diastolic blood pressure 79 mm[Hg] 79 mm[Hg] MEDENT ([facility]) Heart rate 70 /min 70 /min MED[facility] ([facility]) Body mass index (BMI) [Ratio] 23.0 kg/m2 23.0 k g/m2 MEDENT ([facility]) Body weight 55.339 kg 55.339 kg [facility] Body temperature 97.3 [degF] 97.3 [degF] MEDENT ([facility]) Systolic blood pressure 140 mm[Hg] 140 mm[Hg] M EDENT ([facility]) Diastolic blood pressure 70 mm[Hg] 70 mm[Hg] MEDENT ([facility]) Heart rate 65 /min 65 /min MEDENT ([facility]) Body height 60 [in_i] 60 [in_i] MEDENT ([facility]) 5'0" Body weight 123.25 [lb_av] 123.25 [lb_av] MEDEN T ([facility]) Body mass index (BMI) [Ratio] 24.1 kg/m2 24.1 k g/m2 MEDENT ([facility]) Body mass index (BMI) [Ratio] 23.8 kg/m2 23.8 k g/m2 [facility] Systolic blood pressure 142 mm[Hg] 142 mm[Hg] [facility] Diastolic blood pressure 80 mm[Hg] 80 mm[Hg] [facility] Systolic blood pressure 118 mm[Hg] 118 mm[Hg] [facility] Diastolic blood pressure 70 mm[Hg] 70 mm[Hg] [facility] ([facility]) Heart rate 84 /min 84 /min [facility] ([facility]) Body height 60 [in_i] 60 [in_i] [facility] ([facility]) 5'0" Body weight 122.00 [lb_av] 122.00 [lb_av] MEDEN T ([facility]) Oxygen saturation in Arterial blood by Pulse oximetry 97 % 97 % [facility] Patient Treatment Plan of Care Planned Activity Planned Date Details Description Data Source (s) Cephalexin 500 MG Oral Capsule 05/08/2021 12:00:00 AM EDT eCW1 (Formerly [facility]) Cephalexin 500 MG Oral Capsule 05/08/2021 12:00:00 AM EDT eCW1 (Formerly [facility])
--- OUTSIDE RECORDS SUMMARY | 2021-08-05 06:48 | CCD | Continuity of Care Document ---
Author Author Isabelle Kunz Organization Unknown Address [address] [facility] [address] [place] [address] Phone [phone] Care Team Providers Care Field Property Loss Specialist Name Role Phone Josie Staton MD AUTM [phone] Willa Fung AUTM [phone] Nghia Garcia MD AUTM [phone] Problems Active Problems Provider Date Allergic rhinitis [...] needed Josie Staton M.D. 09/15/2017 Calcium 600+D [id number] Table ts 1-2 a day po Josie Staton M.D. 02/26/20 15 Preservision Areds Tablets 1 qd po Josie Staton M.D. 02/25/2015 Sertraline HCL 25mg Tablets take 1-2 tablets by mouth every day 90tabs Krystal Hubbard 02/25/2015 Nettipot prn Josie Staton M.D. 0 02/14/2012 MV-One Capsules qd Josie Staton M.D. 02/10/2011 Medications Administered in Office Medication SIG Qnty Indications Ordering Provider Date Administration Of Flu Vaccine Inj wilfred Staton M.D. 07/23/20 21 Covid-19 vaccine, Unspecified Inj ection Unknown 12/26/2020 Covid-19 vaccine, Unspecified Inj ection Unknown 12/05/2020 Administration Of Flu Vaccine Inj wilfred Staton M.D. 07/29/20 20 Administration Of Flu Vaccine Inj wilfred Staton M.D. 08/07/20 19 Administration Of Flu Vaccine Inj wilfred Staton M.D. 08/02/20 17 Administration Of Flu Vaccine Inj wilfred Staton M.D. 07/23/20 16 Administration Of Flu Vaccine Inj wilfred Staton M.D. 07/16/20 09 Immunizations CPT Code Status Date Vaccine Lot # [id number] Given 07/23/2021 Influenza Vaccin e Quadrivalent Preser/Antibiotic Free Im Use [id number] 84048 Given 07/29/2020 Influenza Vaccin e Quadrivalent Preser/Antibiotic Free Im Use [id number] 58698 Given 08/07/2019 Influenza Vaccin e Quadrivalent Preser/Antibiotic Free Im Use [id number] 93129 Given 06/11/2019 Shingrix Zoster Vaccine (HZV), Recombinant, Subunit, Adjuvanted 17954 Given 02/06/2019 Shingrix U-Flu Given 07/28/2018 Influenza,Unspecified 71361 Given 08/02/2017 Influenza Vaccin e Quadrivalent Preser/Antibiotic Free Im Use 71504 Given 03/22/2017 Adacel- Tetanus Diphtheria P ertussis [id number] Q2037 Given 07/23/2016 Fluvirin Virus Vaccine 51259 01 99004 Given 07/16/2009 Influenza Virus Vaccine 61070 Given 09/14/2007 Pneumovax 23 41251 Given 03/27/2007 Tetanus/Diptheria(Td)Toxoids Preservative Free Vital Signs [...] H/L Range Note Complete Blood Count 03/05/2021 [facility] [employer] Counter Assistant: [place] [address] [phone] WBC 6.1 x10*3/UL 4.1 - 10.9 RBC [...] 2.0 - 7.8 Comprehensive Chem Profile 03/05/2021 [facility] [employer] Counter Assistant: [place] [address] [phone] Glucose 91 mg/dL 74 - 99 1 [...] 60 mL/min >60 2 Lipid Profile 03/05/2021 [facility] , [employer] Counter Assistant: [place] [address] [phone] Cholesterol 229 mg/dL High 131 - 200 Triglycerides 103 mg/dL 30 - 150 HDL Cholesterol 91 mg/dL High 35 - 60 LDL (Calculated) 117 CALC 50 - 159 Laboratory test finding 03/05/2021 [facility] [employer] Counter Assistant: [place] [address] [phone] Thyroid Stimulating Hormone 1.85 uIU/mL 0.3 6 - 3.74 Ua Dipstick Only 03/05/2021 [facility] , [employer] Counter Assistant: [place] [address] [phone] Urine Color YELLOW Yellow Urine Appearance SL. HAZY Abnormal Clear Urine PH 8.0 units 5.0 - 9.0 Urine Specific [place] 1.010 1.005 - 1.030 Urine Leukocytes NEGATIVE [...] LITTLE GFR LEFT ESRD GFR <15 ON [employer] Procedures Date Code Description Status 03/05/2021 11715 EKG/Interpretation & Report Comp leted 03/05/2021 27611 Est Prevent Med (65Yrs&Ovr) Comp leted 07/09/2020 [id number] Mammogram Completed 06/26/2019 [id number] Mammogram Completed 06/26/2019 [id number] Bone Mineral Density Test [facility] 08/16/2018 [id number] Colonoscopy Completed 02/21/2018 [id number] Mammogram Completed 08/24/2017 [id number] Colonoscopy Completed 02/18/2017 [id number] Bone Mineral Density Test [facility] 02/18/2017 [id number] Mammogram Completed 08/18/2016 [id number] Colonoscopy Completed 03/19/2015 [id number] Mammogram Completed 03/01/2014 [id number] Mammogram Completed 03/01/2014 [id number] Bone Mineral Density Test [facility] 02/26/2013 [id number] Mammogram Completed 02/22/2012 [id number] Mammogram Completed 02/22/2012 [id number] Bone Mineral Density Test [facility] 08/11/2011 [id number] Colonoscopy Completed 08/28/2010 [id number] Colonoscopy Completed 09/29/2009 [id number] Mammogram Completed 04/22/2009 [id number] Bone Mineral Density Test [facility] Medical Devices Description No Information Available Encounters Type Date Location Provider Dx Diagnosis Office Visit 03/05[facility] Z00.00 Encntr for [...] hyperten roxann Assessments Date Code Description Provider 07/23/2021 Z23 Encounter for immunization Josie Staton M.D. 07/23/2021 Z23 Encounter for immunization Nurse Schedule 03/05/2021 Z00.00 Encounter for genera l adult [...] 9:30 am - [facility] 03/05/2021 - Josie Staotn M.D.* Z00.00 Encounter for general adult medical [...] needed * Comments:* 8. Cough. Chronic, stable. [place] to be related to allergies9. Skin cancer. Follows regularly with [id number]. Health Maintenance. Patient's Medicare Wellness paperwork is [...]
--- OUTSIDE RECORDS SUMMARY | 2021-08-05 06:48 | CCD | Continuity of Care Document ---
Author Author Isabelle Kunz Organization Unknown Address [address] [facility] [address] [place] [address] Phone [phone] Care Team Providers Care Associate Professor Of Communication Name Role Phone Josie Staton MD AUTM [phone] Willa Fung AUTM [phone] Nghia Garcia MD AUTM [phone] Problems Active Problems Provider Date Allergic rhinitis [...] needed Josie Staton M.D. 09/15/2017 Calcium 600+D [id number] Table ts 1-2 a day po Josie [...] CPT Code Status Date Vaccine Lot # [id number] Given 07/23/2021 Influenza Vaccin e Quadrivalent Preser/Antibiotic Free Im Use [id number] 62014 Given 07/29/2020 Influenza Vaccin e Quadrivalent Preser/Antibiotic Free Im Use 033064 88089 Given 08/07/2019 Influenza Vaccin e Quadrivalent Preser/Antibiotic Free Im Use 722007 22770 Given 06/11/2019 Shingrix Zoster Vaccine (HZV), Recombinant, Subunit, Adjuvanted 68034 Given 02/06/2019 Shingrix U-Flu Given 07/28/2018 Influenza,Unspecified 13893 Given 08/02/2017 Influenza Vaccin e Quadrivalent Preser/Antibiotic Free Im Use 44999 Given 03/22/2017 Adacel- Tetanus Diphtheria P ertussis [id number] Q2037 Given 07/23/2016 Fluvirin Virus Vaccine 63979 01 28196 Given 07/16/2009 Influenza Virus Vaccine 89304 Given 09/14/2007 Pneumovax 23 25990 Given 03/27/2007 Tetanus/Diptheria(Td)Toxoids Preservative Free Vital Signs [...] H/L Range Note Complete Blood Count 03/05/2021 [facility] Risk Management Professional: [place] [address] [phone] WBC 6.1 x10*3/UL 4.1 - 10.9 RBC [...] 2.0 - 7.8 Comprehensive Chem Profile 03/05/2021 [facility], Risk Management Professional: Dr Jose [place] [address] [phone] Glucose 91 mg/dL 74 - 99 1 [...] 60 mL/min >60 2 Lipid Profile 03/05/2021 [facility] , Risk Management Professional: Dr Jose [place] [address] [phone] Cholesterol 229 mg/dL High 131 - 200 Triglycerides 103 mg/dL 30 - 150 HDL Cholesterol 91 mg/dL High 35 - 60 LDL (Calculated) 117 CALC 50 - 159 Laboratory test finding 03/05/2021 [facility] Risk Management Professional: Dr Jose [place] [address] [phone] Thyroid Stimulating Hormone 1.85 uIU/mL 0.3 6 - 3.74 Ua Dipstick Only 03/05/2021 [facility] , Risk Management Professional: Dr Jose [place] [address] [phone] Urine Color YELLOW Yellow Urine Appearance SL. HAZY Abnormal Clear Urine PH 8.0 units 5.0 - 9.0 Urine Specific [place] 1.010 1.005 - 1.030 Urine Leukocytes NEGATIVE [...] LITTLE GFR LEFT ESRD GFR <15 ON [employer] Procedures Date Code Description Status 03/05/2021 83864 EKG/Interpretation & Report Comp leted 03/05/2021 59639 Est Prevent Med (65Yrs&Ovr) Comp leted 07/09/2020 [id number] Mammogram Completed 06/26/2019 [id number] Mammogram Completed 06/26/2019 [id number] Bone Mineral Density Test [facility] 08/16/2018 [id number] Colonoscopy Completed 02/21/2018 [id number] Mammogram Completed 08/24/2017 [id number] Colonoscopy Completed 02/18/2017 [id number] Bone Mineral Density Test [facility] 02/18/2017 [id number] Mammogram Completed 08/18/2016 [id number] Colonoscopy Completed 03/19/2015 [id number] Mammogram Completed 03/01/2014 [id number] Mammogram Completed 03/01/2014 [id number] Bone Mineral Density Test [facility] 02/26/2013 [id number] Mammogram Completed 02/22/2012 [id number] Mammogram Completed 02/22/2012 [id number] Bone Mineral Density Test [facility] 08/11/2011 [id number] Colonoscopy Completed 08/28/2010 [id number] Colonoscopy Completed 09/29/2009 [id number] Mammogram Completed 04/22/2009 [id number] Bone Mineral Density Test [facility] Medical Devices Description No Information Available Encounters Type Date Location Provider Dx Diagnosis Office Visit 03/05[facility]2021 [facility] Z[facility] Encntr for [...] 9:30 am - [facility] 03/05/2021 - Josie Staton M.D.* Z00.00 [...] needed * Comments:* 8. Cough. Chronic, stable. [place] to be related to allergies9. Skin cancer. Follows regularly with [id number]. Health Maintenance. Patient's Medicare Wellness paperwork is [...]
--- OUTSIDE RECORDS SUMMARY | 2021-08-05 06:48 | CCD ---
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 IMMUNIZATIONS No Information SOCIAL HISTORY Sex Assigned At : Social History Observation Description Sex Assigned At Unknown REASON FOR REFERRAL No Information VITAL SIGNS Weight 125 lbs Apr, Height 60 in Apr, BMI 24.41 kg/m2 Apr, Blood pressure systolic 138 mm Hg Apr, Blood pressure diastolic 82 mm Hg Apr, MEDICATIONS Medication SIG (Take, Route, Frequency, Duration) [...] 4 hrs Active PROCEDURES from 1941 to 2021-05-08 Procedure Date Ordered Result Body Site Med: Derm Lidocaine with Epinephrine Inj ection 1% with 2 ml sodium bicarbonate Intradermally to marked areas 2021-05-08 N/A RESULTS No Results REASON FOR VISIT SCC, left wrist, Squamous Atypia, right dorsal foot MEDICAL (GENERAL) HISTORY Type Description Date Medical [...] Notes Treatment Notes Treatm ent Clinical Notes Apr, Squamous cell carcinoma of left wrist (ICD-10 - 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 [place] protocol was followed in compliance with [facility] standards. The site was marked and anesthetized with lidocaine 1% with epinephrine. The area was then prepped and draped in a clean fashion. The lesion was excised with margins as below. The lesion was or was not tagged as indicated below. Hemostasis was obtained using hyfrecation. Estimated blood loss was 1mL. Once tissue was removed, then defect was then repaired as below. Tagging: [s ] No [ ] 1200 Initial size: [ 0.3 x 0.3 ]cm Margins: [ 0.5 ]cm Size of lesion with margins : [ 1.3 x 1.3 ]cm Procedure: Complex repair. The wound was then widely undermined with superficial margin undermined greater than the width of the initial wound. A plication suture was placed in a horizontal fashion to the deep fascia. Wound was then closed in a multilayered fashion with deep buried absorbable sutures. Superficial approximation of tissue was accomplished non-absorbable sutures. The wound was cleaned, Vaseline placed, and a pressure dressing applied to immobilize the wound and aid in hemostasis. Patient was instructed on wound care and directed to f/u for suture removal as below. The patient was instructed to return to clinic sooner for signs of symptoms of infection to include erythema, draining fluid or pain to palpation. There was no noted significant difference from baseline pain score after procedure. Post-operative pain management plan discussed and patient will take acetaminophen 650mg every four hours as needed. The patient left the operating suite alert and fully oriented. Follow-up discu ssed. 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 [place] protocol was followed in compliance with [facility] standards. The site was marked and anesthetized with lidocaine 1% with epinephrine. The area was then prepped and draped in a clean fashion. The lesion was excised with margins as below. The lesion was or was not tagged as indicated below. Hemostasis was obtained using hyfrecation. Estimated blood loss was 1mL. Once tissue was removed, then defect was then repaired as below. Tagging: [ d ] No [ ] 1200 Initial size: [ 0.5 x 0.5 ]cm Margins: [ 0.5 x 035 ]cm Size of lesion with margins : [ 1.5 x 1.5 ]cm Intermediate repair. The wound was then undermined with at least 1 cm margins. Wound was then closed with deep buried absorbable sutures. Superficial approximation of tissue was accomplished with non-absorbable sutures. The wound was cleaned, Vaseline placed, and a pressure dressing applied to immobilize the wound and aid in hemostasis. Patient was instructed on wound care and directed to f/u for suture removal as below. The patient was instructed to return to clinic sooner for signs of symptoms of infection to include erythema, draining fluid or pain to palpation. There was no noted significant difference from baseline pain score after procedure. Post-operative pain management plan discussed and patient will take acetaminophen 650mg every four hours as needed. The patient left the operating suite alert and fully oriented. Follow-up discussed. Procedure Management: Deep Sutures: 4-0 monocryl Superficial Sutures: 4-0 prolene Final length of incision [4.0 ]cm Suture Removal: [ 10 ] days PLAN OF TREATMENT Medication Medication Name Sig Start Date Stop Date Cephalexin 500 MG 1 capsule Orally every 12 hrs for 10 day(s) Apr, Treatment Notes Assessment Notes Clinical Notes Squamous cell carcinoma of left wrist Pr ocedure: Excision. [place] protocol was followed in compliance with [facility] standards. The site was marked and anesthetized with lidocaine 1% with epinephrine. The area was then prepped and draped in a clean fashion. The lesion was excised with margins as below. The lesion was or was not tagged as indicated below. Hemostasis was obtained using hyfrecation. Estimated blood loss was 1mL. Once tissue was removed, then defect was then repaired as below. Tagging: [s ] No [ ] 1200 Initial size: [ 0.3 x 0.3 ]cm Margins: [ 0.5 ]cm Size of lesion with margins : [ 1.3 x 1.3 ]cmProcedure: Complex repair. The wound was then widely undermined with superficial margin undermined greater than the width of the initial wound. A plication suture was placed in a horizontal fashion to the deep fascia. Wound was then closed in a multilayered fashion with deep buried absorbable sutures. Superficial approximation of tissue was accomplished non-absorbable sutures. The wound was cleaned, Vaseline placed, and a pressure dressing applied to immobilize the wound and aid in hemostasis. Patient was instructed on wound care and directed to f/u for suture removal as below. The patient was instructed to return to clinic sooner for signs of symptoms of infection to include erythema, draining fluid or pain to palpation. There was no noted significant difference from baseline pain score after procedure. Post-operative pain management plan discussed and patient will take acetaminophen 650mg every four hours as needed. The patient left the operating suite alert and fully oriented. Follow-up discussed. Procedure Management: Deep Sutures: 5-0 monocryl Superficial Sutures: 6-0 prolene Final length of incision [ 4.0 ]cm Suture Removal: [ 10 ] days Neoplasm of uncertain behavior Procedure : Excision. [place] protocol was followed in compliance with [facility] standards. The site was marked and anesthetized with lidocaine 1% with epinephrine. The area was then prepped and draped in a clean fashion. The lesion was excised with margins as below. The lesion was or was not tagged as indicated below. Hemostasis was obtained using hyfrecation. Estimated blood loss was 1mL. Once tissue was removed, then defect was then repaired as below. Tagging: [ d ] No [ ] 1200 Initial size: [ 0.5 x 0.5 ]cm Margins: [ 0.5 x 035 ]cm Size of lesion with margins : [ 1.5 x 1.5 ]cmIntermediate repair. The wound was then undermined with at least 1 cm margins. Wound was then closed with deep buried absorbable sutures. Superficial approximation of tissue was accomplished with non-absorb able sutures. The wound was cleaned, Vaseline placed, and a pressure dressing applied to immobilize the wound and aid in hemostasis. Patient was instructed on wound care and directed to f/u for suture removal as below. The patient was instructed to return to clinic sooner for signs of symptoms of infection to include erythema, draining fluid or pain to palpation. There was no noted significant difference from baseline pain score after procedure. Post-operative pain management plan discussed and patient will take acetaminophen 650mg every four hours as needed. The patient left the operating suite alert and fully oriented. Follow-up discussed. Procedure Management: Deep Sutures: 4-0 monocryl Superficial Sutures: 4-0 prolene Final length of incision [4.0 ]cm Suture Removal: [ 10 ] days Next Appt Details Provider Name:Jorge Ro, 05-18 10:30:00 AM, [address] [place] [address], , [place], [address] Provider Name:Laura Woodward, 2022-04-05 01:00:00 PM, [address] [place] [address], , [place], [address], Insurance Providers Payer Name Payer Address Payer Phone Insured Name Patient Relati onship to Insured Coverage Start Date Coverage End Date MEDICARE BLUE PPO [id number] [id number] JONNY NETTLES self
--- OUTSIDE RECORDS SUMMARY | 2021-08-05 06:48 | CCD | Continuity of Care Document ---
Author Author Isabelle Kunz Organization Unknown Address [address] [facility] [address] [place] [address] Phone [phone] Care Team Providers Care Drug Inspector Name Role Phone Josie Staton MD AUTM [phone] Willa Fung AUTM [phone] Nghia Garcia MD AUTM [phone] Problems Active Problems Provider Date Allergic rhinitis [...] needed Josie Staton M.D. 09/15/2017 Calcium 600+D [id number] Table ts 1-2 a day po Josie [...] CPT Code Status Date Vaccine Lot # [id number] Given 07/23/2021 Influenza Vaccin e Quadrivalent Preser/Antibiotic Free Im Use [id number] Given 07/29/2020 Influenza Vaccin e Quadrivalent Preser/Antibiotic Free Im Use [id number] 12855 Given 08/07/2019 Influenza Vaccin e Quadrivalent Preser/Antibiotic Free Im Use [id number] 20228 Given 06/11/2019 Shingrix Zoster Vaccine (HZV), Recombinant, Subunit, Adjuvanted 32907 Given 02/06/2019 Shingrix U-Flu Given 07/28/2018 Influenza,Unspecified 15515 Given 08/02/2017 Influenza Vaccin e Quadrivalent Preser/Antibiotic Free Im Use 60839 Given 03/22/2017 Adacel- Tetanus Diphtheria P ertussis [id number] Given 07/23/2016 Fluvirin Virus Vaccine 41043 01 82266 Given 07/16/2009 Influenza Virus Vaccine 36599 Given 09/14/2007 Pneumovax 23 93299 Given 03/27/2007 Tetanus/Diptheria(Td)Toxoids Preservative Free Vital Signs [...] H/L Range Note Complete Blood Count 03/05/2021 [facility] Shearer Operator: [place] [address] [phone] WBC 6.1 x10*3/UL 4.1 - 10.9 RBC [...] 2.0 - 7.8 Comprehensive Chem Profile 03/05/2021 [facility] Operator: [place] [address] [phone] Glucose 91 mg/dL 74 - 99 1 [...] 60 mL/min >60 2 Lipid Profile 03/05/2021 [facility] Shearer Operator: [place] [address] [phone] Cholesterol 229 mg/dL High 131 - 200 Triglycerides 103 mg/dL 30 - 150 HDL Cholesterol 91 mg/dL High 35 - 60 LDL (Calculated) 117 CALC 50 - 159 Laboratory test finding 03/05/2021 [facility] Shearer Operator: [place] [address] [phone] Thyroid Stimulating Hormone 1.85 uIU/mL 0.3 6 - 3.74 Ua Dipstick Only 03/05/2021 [facility] Shearer Operator: [place] [address] [phone] Urine Color YELLOW Yellow Urine Appearance SL. 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 Procedures Date Code Description Status 03/05/2021 82028 EKG/Interpretation & Report Comp leted 03/05/2021 37879 Est Prevent Med (65Yrs&Ovr) Comp leted 07/09/2020 [id number] Mammogram Completed 06/26/2019 [id number] Mammogram Completed 06/26/2019 [id number] Bone Mineral Density Test Comple [facility] 08/16/2018 [id number] Colonoscopy Completed 02/21/2018 [id number] Mammogram Completed 08/24/2017 [id number] Colonoscopy Completed 02/18/2017 [id number] Bone Mineral Density Test Comple [facility] 02/18/2017 [id number] Mammogram Completed 08/18/2016 [id number] Colonoscopy Completed 03/19/2015 [id number] Mammogram Completed 03/01/2014 [id number] Mammogram Completed 03/01/2014 [id number] Bone Mineral Density Test Comple [facility] 02/26/2013 [id number] Mammogram Completed 02/22/2012 [id number] Mammogram Completed 02/22/2012 [id number] Bone Mineral Density Test Comple [facility] 08/11/2011 [id number] Colonoscopy Completed 08/28/2010 [id number] Colonoscopy Completed 09/29/2009 [id number] Mammogram Completed 04/22/2009 [id number] Bone Mineral Density Test Comple [facility] Medical Devices Description No Information Available Encounters Type Date Location Provider Dx Diagnosis Office Visit 03/05/2021 9[facility]a [facility] Z00.00 Encntr for [...] 9:30 am - Jos[facility] 03/05/2021 - Josie Staton M.D.* Z00.00 [...] needed * Comments:* 8. Cough. Chronic, stable. [place] to be related to allergies9. Skin cancer. Follows regularly with [id number]. Health Maintenance. Patient's Medicare Wellness paperwork is [...]
[2021-08-05] MEDS ORDERED: propofoL 500 MG/50 ML VIAL As Ordered ONE (07:31)
[2021-08-05] MEDS ORDERED: LIDOCAINE 2% 100MG/5ML SDV (FOR ANES.) As Ordered ONE (07:31)
--- NOTE | 2021-08-05 08:16 | ROOR ---
Patient Name: Isabelle Boykin Procedure Date: 08/05/2021 7:26 AM Date of : 1940 Age: 80 Room: [facility] Gender: Female Note Status: Finalized Procedure: Total Colonoscopy to Cecum + Hot + Cold Snare Polypectomy + Hemoclips Indications: High risk colon cancer surveillance: Personal history of colonic polyps, Last colonoscopy: 2017 Providers: Nghia Garcia MD Referring MD: Josie BELL MD Requesting Provider: Medicines: Monitored Anesthesia Care Complications: No immediate complications. Procedure: Pre-Anesthesia Assessment: - The heart rate, respiratory rate, oxygen saturations, blood pressure, adequacy of pulmonary ventilation, and response to care were monitored throughout the procedure. The Colonoscope was introduced through the anus and advanced to the cecum, identified by appendiceal orifice and ileocecal valve. The colonoscopy was performed without difficulty. The patient tolerated the procedure well. The quality of the bowel preparation was good. Findings: The perianal and digital rectal examinations were normal. Non-bleeding internal hemorrhoids were found during retroflexion. The hemorrhoids were small and Grade I (internal hemorrhoids that do not prolapse). A medium polyp was found in the rectum. The polyp was sessile. The polyp was removed with a hot snare. Resection and retrieval were complete. Coagulation for destruction of remaining portion of lesion using argon plasma at 0.8 liters/minute and 30 cross was successful. A small polyp was found in the ascending colon. The polyp was carpet-like. Biopsies were taken with a cold forceps for histology. To prevent bleeding after the polypectomy, one hemostatic clip was successfully placed. There was no bleeding at the end of the procedure. A medium polyp was found at 60 cm proximal to the anus. The polyp was carpet-like. The polyp was removed with a cold snare. Resection and retrieval were complete. To prevent bleeding after the polypectomy, one hemostatic clip was successfully placed. There was no bleeding at the end of the procedure. The exam was otherwise without abnormality on direct and retroflexion views. Impression: - Non-bleeding internal hemorrhoids. - One medium polyp in the rectum, removed with a hot snare. Resected and retrieved. Treated with argon plasma coagulation (APC). - One small polyp in the ascending colon. Biopsied. Clip was placed. - One medium polyp at 60 cm proximal to the anus, removed with a cold snare. Resected and retrieved. Clip was placed. - The examination was otherwise normal on direct and retroflexion views. - The exam was otherwise normal to the cecum. Recommendation: - Patient has a contact number available for emergencies. The signs and symptoms of potential delayed complications were discussed with the patient. Return to normal activities tomorrow. Written discharge instructions were provided to the patient. - High fiber diet. - Discharge patient to home. - Continue present medications. - Await pathology results. - Telephone GI clinic for pathology results in 1 week. - Repeat colonoscopy in 1 year for surveillance based on pathology results. - Return to referring physician. - The findings and recommendations were discussed with the patient. Procedure Code(s): --- Professional --- 83148, Colonoscopy, flexible; with removal of tumor(s), polyp(s), or other lesion(s) by snare technique [id number], 59, Colonoscopy, flexible; with biopsy, single or multiple Diagnosis Code(s): --- Professional --- Z86.010, Personal history of colonic polyps K64.0, First degree hemorrhoids K62.1, Rectal polyp K63.5, Polyp of colon CPT copyright 2019 [employer]. All rights reserved. The codes documented in this report are preliminary and upon information coder review may be revised to meet current compliance requirements. Nghia Garcia MD Nghia Garcia MD 08/05/2021 8:15:57 AM Electronically signed by Nghia Garcia MD Number of Addenda: 0 Note Initiated On: 08/05/2021 7:26 AM Estimated Blood Loss: Estimated blood loss: none.
[2021-08-05 08:30] VITALS: BP 144/67
== END 2021-08-05 08:31 | disposition home or self-care (01) ==
LOC: M OPP 06:43
PROVIDERS: ATTEND Internal Medicine Gastroenterology
DX: Z12.11 Encounter for screening for malignant neoplasm of colon (principal); Z86.010 Personal history of colon polyps; K63.5 Polyp of colon; K62.1 Rectal polyp; K64.0 First degree hemorrhoids; Z79.899 Other long term (current) drug therapy

== ENCOUNTER → 2022-06-01 | Outpatient (REF) | payer MEDICARE ==
[~2022-06-01] MED LIST changes: -NS 1,000 ML IV ONE
== END ==
LOC: M SFHCDERM 09:08
PROVIDERS: ATTEND Physician Assistant
DX: L57.0 Actinic keratosis (principal)
CPT/HCPCS: 11102; 17000; 17003; 88305; G0463

== ENCOUNTER 2023-02-09 08:58 | Day surgery (SDC) | payer MEDICARE ==
[~2023-02-09] VITALS: Ht 154.9 cm; Wt 53.1 kg
[~2023-02-09 08:58] MED LIST changes: +MAGN400C2 PO; +NS 1,000 ML IV ONE; +PRES10CA2 PO; +THERTAB52 PO; +TYLE650T38 PO; +[UNRECOGNIZED DRUG - CODE] PO
[2023-02-09] MEDS ORDERED: LIDOCAINE 2% 100MG/5ML SDV (FOR ANES.) As Ordered ONE (10:35)
[2023-02-09] MEDS ORDERED: propofoL 200 MG/20 ML VIAL As Ordered ONE (10:35)
[2023-02-09 11:25] VITALS: BP 157/70
== END 2023-02-09 11:44 | disposition home or self-care (01) ==
LOC: M OPP 08:58
PROVIDERS: ATTEND Internal Medicine Gastroenterology
DX: D12.3 Benign neoplasm of transverse colon (principal); D12.8 Benign neoplasm of rectum; K64.0 First degree hemorrhoids; Z86.010 Personal history of colon polyps

== ENCOUNTER 2023-08-23 17:02 | Emergency (ER) | payer MEDICARE ==
[~2023-08-23] VITALS: Ht 154.9 cm; Wt 54.5 kg
[~2023-08-23 17:02] MED LIST changes: -NS 1,000 ML IV ONE
[2023-08-23 17:15] VITALS: TEMP 98.6
[2023-08-23 18:20] LABS: BASO % 0.6 % (0.0-1.0); EOS # 0.1 10^3/uL (0.0-0.5); LYMPH # 1.3 10^3/uL (1.5-5.0); LYMPH % 18.7 % (24.0-44.0); MEAN CORPUSCULAR HGB CONC 32.5 g/dl (32.0-36.5); MONO # 0.8 10^3/uL (0.0-0.8); MONO % 11.4 % (2.0-8.0); NEUTROPHILS # 4.7 10^3/uL (1.5-8.5); NEUTROPHILS % 67.7 % (36.0-66.0); PLATELET COUNT, AUTOMATED 287 10^3/uL (150-450); WHITE BLOOD COUNT 6.9 10^3/uL (4.0-10.0)
[2023-08-23 18:28] LABS: CK-MB VALUE MASS 2.1 NG/ML (<3.6)
[2023-08-23 18:31] LABS: ALBUMIN 4.2 G/DL (3.2-5.2); ALKALINE PHOSPHATASE 59 U/L (46-116); ALT/SGPT 35 U/L (7.0-40); AST/SGOT 42 U/L (<34); BILIRUBIN,DIRECT 0.1 MG/DL (<0.4); BILIRUBIN,TOTAL 0.5 MG/DL (0.3-1.2); BLOOD UREA NITROGEN 13 MG/DL (9-23); CALCIUM LEVEL 9.2 MG/DL (8.3-10.6); CARBON DIOXIDE LEVEL 26 MMOL/L (20-31); CHLORIDE LEVEL 99 MMOL/L (98-107); CREATININE FOR GFR 0.51 MG/DL (0.55-1.30); GLOMERULAR FILTRATION RATE > 60.0 (>32); GLUCOSE, FASTING 111 MG/DL (74-106); POTASSIUM SERUM 4.1 MMOL/L (3.5-5.1); SODIUM LEVEL 135 MMOL/L (136-145); TOTAL PROTEIN 7.1 G/DL (5.7-8.2)
[2023-08-23 18:33] LABS: THYROID STIMULATING HORMONE 2.996 uIU/ML (0.55-4.78)
[2023-08-23 18:35] LABS: CPK CREATINE PHOSPHOKINASE 704 U/L (34-145); MB/CK RELATIVE INDEX 0.29 (< OR =4)
[2023-08-23] MEDS ORDERED: AMPICILLIN SOD/SULBACTAM SOD 3 GM in D5W MINI-BAG PLUS 100 ML IV ONE (18:55)
[2023-08-23 20:22] LABS: RSV AMPLIFICATION NEGATIVE (NEGATIVE)
[2023-08-23 22:15] VITALS: BP 145/70; O2SAT 96
== END 2023-08-23 22:35 | disposition short-term general hospital (02) ==
LOC: M ED 17:02
DX: S02.40CA Maxillary fracture, right side, initial encounter for closed fracture (principal); S02.2XXA Fracture of nasal bones, initial encounter for closed fracture; W01.0XXA Fall on same level from slipping, tripping and stumbling without subsequent striking against object, initial encounter; I49.1 Atrial premature depolarization; I10 Essential (primary) hypertension; Z79.810 Long term (current) use of selective estrogen receptor modulators (SERMs); Z79.899 Other long term (current) drug therapy; Z79.1 Long term (current) use of non-steroidal anti-inflammatories (NSAID); Y92.22 Religious institution as the place of occurrence of the external cause; Y93.9 Activity, unspecified; Y99.9 Unspecified external cause status
CPT/HCPCS: 70450; 70486; 72125; 80048; 80076; 82550; 82553; 84443; 84484; 85025; 87631; 93005; 96365; 96366; 99285; J0295

== ENCOUNTER → 2024-04-10 | Outpatient (CLI) | payer MEDICARE ==
[~2024-04-10] MED LIST changes: +PROHANCE 279.3MG/ML 5ML VIAL ONE
== END ==
LOC: M PLAIMG 08:50
PROVIDERS: ATTEND Internal Medicine
DX: R29.6 Repeated falls (principal)
CPT/HCPCS: 70553; A9576

== ENCOUNTER 2024-07-18 06:39 | Day surgery (SDC) | payer MEDICARE ==
[~2024-07-18] VITALS: Ht 154.9 cm; Wt 52.5 kg
[~2024-07-18 06:39] MED LIST changes: +ACET-1349 PO; +ATIV1TAB10 PO; +COQ150CH PO; -PROHANCE 279.3MG/ML 5ML VIAL ONE; +SERT50TA29 PO
[2024-07-18] MEDS: NS 1,000 ML IV ONE (07:20)
[2024-07-18] MEDS ORDERED: propofoL 200 MG/20 ML VIAL As Ordered ONE (08:03)
[2024-07-18] MEDS ORDERED: LIDOCAINE 2% 100MG/5ML SDV (FOR ANES.) As Ordered ONE (08:03)
[2024-07-18] MEDS ORDERED: ePHEDrine SULFATE 25 MG/5 ML(5MG/ML) SYRINGE As Ordered ONE (08:23)
[2024-07-18 08:53] VITALS: TEMP 97.1
[2024-07-18 09:08] VITALS: BP 169/67; O2SAT 98
== END 2024-07-18 09:16 | disposition home or self-care (01) ==
LOC: M OPP 06:39
PROVIDERS: ATTEND Internal Medicine Gastroenterology
DX: D12.8 Benign neoplasm of rectum (principal); Z86.0100 Personal history of colon polyps, unspecified; I10 Essential (primary) hypertension; M19.90 Unspecified osteoarthritis, unspecified site; F41.9 Anxiety disorder, unspecified; Z85.42 Personal history of malignant neoplasm of other parts of uterus; Z79.899 Other long term (current) drug therapy

== ENCOUNTER → 2024-08-28 | Outpatient (REF) | payer MEDICARE ==
[2024-08-28 18:55] LABS: RHEUMATOID FACTOR QUANT 7.5 IU/ML (<14)
[2024-08-28 18:57] LABS: FOLATE > 24.0 NG/ML (>5.4)
[2024-08-28 18:58] LABS: VITAMIN B12 LEVEL 885 PG/ML (211-911)
[2024-08-30 11:56] LABS: PROTEIN, TOTAL SO 7.1 g/dL (6.1-8.1)
[2024-08-31 07:31] LABS: ANA SCREEN, IFA NEGATIVE (NEGATIVE)
[2024-08-31 15:47] LABS: ALBUMIN SO 4.5 g/dL (3.8-4.8); ALPHA 1 GLOBULINS SO 0.3 g/dL (0.2-0.3); ALPHA 2 GLOBULINS SO 0.8 g/dL (0.5-0.9); BETA 2 GLOBULIN SO 0.3 g/dL (0.2-0.5); BETA GLOBULIN SO 0.4 g/dL (0.4-0.6); GAMMA GLOBULINS SO 0.7 g/dL (0.8-1.7)
== END ==
LOC: M LAB REF 16:11
PROVIDERS: ATTEND Internal Medicine
DX: G62.9 Polyneuropathy, unspecified (principal)

== ENCOUNTER → 2025-01-03 | Outpatient (CLI) | payer MEDICARE | LOC: M WUC 12:27 | PROVIDERS: ATTEND Nurse Practitioner Family | DX: M54.59 Other low back pain (principal) ==

== ENCOUNTER → 2025-06-18 | Outpatient (REF) | payer MEDICARE | LOC: M LAB REF 15:10 | PROVIDERS: ATTEND Internal Medicine | DX: D64.9 Anemia, unspecified (principal) ==

== ENCOUNTER → 2025-06-26 | Outpatient (REF) | payer MEDICARE | LOC: M SFHCDERM 09:09 | PROVIDERS: ATTEND Physician Assistant | DX: D48.5 Neoplasm of uncertain behavior of skin (principal) ==